=== PATIENT | female | born 1985 | race African-American/Black ===

== ENCOUNTER 2021-08-10 11:20 | Emergency (ER) | payer OTHER ==
[~2021-08-10] VITALS: Ht 175.3 cm; Wt 84.8 kg
[~2021-08-10 11:20] MED LIST: ACTICIN 5% CREA60 GM TOP; AYGESTIN 5 MG TA5 M1 PO; AZITHROMYCIN 2250 MG PO; BACTRIM DS TAB1 EACH PO; BUTALB-APAP-CA1 EACH PO; COLACE 100 MG100 MG PO; DERMOPLAST SPRA56 ML; ESKALITH CR450 MG PO; FLEXERIL PO; FLONASE 0.05%50 MCG NASAL; IBUPROFEN 600600 M1 PO; IBUPROFEN 800800 M1 PO; IRON325 PO; KEFLEX500 MG PO; LANOLIN56 GM; LISINOPRIL-HCT1 EAC2 PO; LISINOPRIL-HCT1 EACH PO; LISINOPRIL5 MG PO; LOPRESSOR PO; LORTABELXR PO; NOHOMEMEDICATIONS; NORCO 5-325 TA1 EACH PO; PHENERGAN 25 MG25 M1 PO; PRENATAL; TIROSINT50 MCG PO; TRAMADOL 50 MG50 MG PO; TRINATE TABLET1 TAB PO; TUCKS MEDICATE1 EAC1; ULTRAM 50MG TAB50 MG PO; ZOFRAN4 MG PO
[2021-08-10] MEDS ORDERED: LITHIUM CARBON300 M3 PO (11:37)
[2021-08-10] MEDS ORDERED: NORVASC10 MG PO (11:38)
[2021-08-10 12:57] LABS: URINE BILIRUBIN NEGATIVE (Negative); URINE BLOOD 3+ (Negative); URINE CLARITY CLOUDY; URINE COLOR ORANGE; URINE GLUCOSE-RANDOM* NEGATIVE (Negative); URINE KETONES NEGATIVE (Negative); URINE LEUKOCYTES-REFLEX NEGATIVE (Negative); URINE NITRITE-REFLEX NEGATIVE (Negative); URINE PROTEIN (DIPSTICK) 2+ (Negative); URINE SPECIFIC GRAVITY 1.025 (1.005-1.035); URINE UROBILINOGEN 0.2 E.U./dl (0.2-1.0)
[2021-08-10 13:13] LABS: SQUAMOUS 4-10 Moderate /LPF (0-3)
[2021-08-10 13:14] LABS: BACTERIA-REFLEX 1-9 Few /HPF (None Seen); CASTS None Seen /LPF (None Seen); CRYSTALS None Seen /LPF (None Seen); URINE RBC >20 Many /HPF (NONE SEEN); URINE WBC-REFLEX None Seen /HPF (0-5)
[2021-08-10 14:32] LABS: ABSOLUTE NEUTROPHILS 1.3 thou/uL (1.4-8.2); BASOPHILS 1.5 % (0.0-2.0); EOSINOPHILS 2.6 % (0.0-3.0); HEMOGLOBIN 9.1 gm/dL (12.0-15.0); LYMPHOCYTES 49.6 % (24.0-44.0); MCH 29.6 pg (26.0-34.0); MCHC 32.4 g/dL (28.0-37.0); MCV 91.2 fL (80.0-100.0); MONOCYTES 5.4 % (1.0-8.0); PLATELET COUNT 229 thou/uL (150-400); POLYS 40.9 % (36.0-66.0); RBC 3.07 mil/uL (4.20-5.00); RDW 13.2 % (10.5-14.5); WBC 3.1 thou/uL (4.0-11.0)
[2021-08-10 14:37] LABS: CALCIUM 8.4 mg/dL (8.5-10.1); CREATININE 0.9 mg/dL (0.6-1.0); POTASSIUM 3.6 mmol/L (3.5-5.1)
[2021-08-10 14:43] LABS: ALBUMIN 3.7 g/dL (3.4-5.0); TOTAL BILIRUBIN 0.2 mg/dL (0.2-1.0); TOTAL PROTEIN 7.4 g/dL (6.4-8.2)
[2021-08-10 16:42] VITALS: BP 148/98
== END 2021-08-10 16:42 | disposition home or self-care (01) ==
LOC: ER 11:20
PROVIDERS: Physician Assistant
DX: N93.9 Abnormal uterine and vaginal bleeding, unspecified (principal); D64.9 Anemia, unspecified; F31.9 Bipolar disorder, unspecified; Z79.891 Long term (current) use of opiate analgesic; Z79.899 Other long term (current) drug therapy

== ENCOUNTER 2021-08-13 18:33 | Emergency (ER) | payer OTHER ==
[~2021-08-13] VITALS: Ht 175.3 cm; Wt 81.7 kg
[~2021-08-13 18:33] MED LIST changes: +LITHIUM CARBON300 M3 PO; +NORVASC10 MG PO
[2021-08-13 21:58] LABS: HEMATOCRIT 23.4 % (37.0-47.0); HEMOGLOBIN 7.6 gm/dL (12.0-15.0); MCH 29.6 pg (26.0-34.0); MCHC 32.4 g/dL (28.0-37.0); MCV 91.3 fL (80.0-100.0); RBC 2.56 mil/uL (4.20-5.00); RDW 12.9 % (10.5-14.5); WBC 2.9 thou/uL (4.0-11.0)
[2021-08-13 22:14] LABS: CALCIUM 8.4 mg/dL (8.5-10.1); CREATININE 1.3 mg/dL (0.6-1.0); POTASSIUM 3.3 mmol/L (3.5-5.1)
[2021-08-14 02:05] VITALS: BP 101/52; BP 108/45; BP 125/66
[2021-08-14 05:24] LABS: HEMATOCRIT 25.1 % (37.0-47.0); HEMOGLOBIN 8.3 gm/dL (12.0-15.0); MCH 30.1 pg (26.0-34.0); MCHC 33.1 g/dL (28.0-37.0); RBC 2.75 mil/uL (4.20-5.00); RDW 12.9 % (10.5-14.5); WBC 2.6 thou/uL (4.0-11.0)
[2021-08-14] MEDS ORDERED: CRYSELLE1 EACH PO (05:45)
[2021-08-14 06:12] VITALS: BP 129/79
--- NOTE | 2021-08-14 07:30 | EKG ---
[place] [address] [employer] [facility] [email or web address] [address] ELECTROCARDIOGRAM REPORT Name: TRAVIS HARRISRoom #: DEP WILLIS [place]#: [id number] Admission: 08/13/21 Attend Phys: Discharge: 08/14/21 Date of : 81 Report #: [id number] [facility] ED Test Date: 2021-08-13 Test Time: 18:54:25 Pat Name: TRAVIS HARRIS Department: Room: Gender: F [employer] Surveying Technician: : 1985 Requested By: Annita Nielsen Order Number: [id number] MD: Edgar Womack Measurements Intervals Hugo Rate: 102 P: 54 MO: 236 QRS: 26 QRSD: 93 T: -54 QT: 351 QTc: 458 Interpretive Statements Sinus tachycardia Prolonged MO interval Borderline T abnormalities, diffuse leads Compared to ECG 09/15/2014 19:50:38 T-wave abnormality now present Sinus rhythm no longer present Sinus arrhythmia no longer present Electronically Signed On 08-14-2021 7:30:46 [employer] by Edgar Womack [email or web address] <ELECTRONICALLY SIGNED> By: Edgar Womack MD, [facility] 08/14/21 0730 53 53 Edgar Womack MD, [facility] /EPI
== END 2021-08-14 06:22 | disposition home or self-care (01) ==
LOC: ER 18:33
PROVIDERS: Emergency Medicine
DX: U07.1 COVID-19 (principal); N93.8 Other specified abnormal uterine and vaginal bleeding; D64.9 Anemia, unspecified; E05.90 Thyrotoxicosis, unspecified without thyrotoxic crisis or storm

== ENCOUNTER 2021-08-17 11:15 | Emergency (ER) | payer OTHER ==
[~2021-08-17] VITALS: Ht 172.7 cm; Wt 82.6 kg
[~2021-08-17 11:15] MED LIST changes: +CRYSELLE1 EACH PO
[2021-08-17 11:28] VITALS: BP 115/81
[2021-08-17 11:49] LABS: URINE BILIRUBIN NEGATIVE (Negative); URINE BLOOD 3+ (Negative); URINE CLARITY CLOUDY; URINE COLOR RED; URINE GLUCOSE-RANDOM* NEGATIVE (Negative); URINE KETONES TRACE (Negative); URINE LEUKOCYTES-REFLEX NEGATIVE (Negative); URINE NITRITE-REFLEX NEGATIVE (Negative); URINE PROTEIN (DIPSTICK) 1+ (Negative); URINE SPECIFIC GRAVITY 1.025 (1.005-1.035); URINE UROBILINOGEN 0.2 E.U./dl (0.2-1.0)
[2021-08-17 11:52] LABS: BACTERIA-REFLEX 1-9 Few /HPF (None Seen); CASTS None Seen /LPF (None Seen); CRYSTALS None Seen /LPF (None Seen); SQUAMOUS 0-3 Few /LPF (0-3); URINE RBC >20 Many /HPF (NONE SEEN); URINE WBC-REFLEX 0-5 Rare /HPF (0-5)
[2021-08-17 13:17] LABS: HEMOGLOBIN 8.1 gm/dL (12.0-15.0); MCH 29.7 pg (26.0-34.0); MCHC 32.3 g/dL (28.0-37.0); MCV 91.8 fL (80.0-100.0); PLATELET COUNT 238 thou/uL (150-400); RBC 2.72 mil/uL (4.20-5.00); RDW 13.7 % (10.5-14.5); WBC 2.9 thou/uL (4.0-11.0)
[2021-08-17 15:06] LABS: ABSOLUTE NEUTROPHILS 1.5 thou/uL (1.4-8.2)
== END 2021-08-17 15:07 | disposition home or self-care (01) ==
LOC: ER 11:15
PROVIDERS: Emergency Medicine
DX: U07.1 COVID-19 (principal); N92.0 Excessive and frequent menstruation with regular cycle; D64.9 Anemia, unspecified; F31.9 Bipolar disorder, unspecified; Z79.899 Other long term (current) drug therapy

== ENCOUNTER 2021-10-01 16:14 | Emergency (ER) | payer OTHER ==
[~2021-10-01] VITALS: Ht 172.7 cm; Wt 89.4 kg
[2021-10-01 16:39] LABS: URINE BILIRUBIN NEGATIVE (Negative); URINE BLOOD 3+ (Negative); URINE CLARITY CLEAR; URINE COLOR YELLOW; URINE GLUCOSE-RANDOM* NEGATIVE (Negative); URINE KETONES NEGATIVE (Negative); URINE LEUKOCYTES-REFLEX NEGATIVE (Negative); URINE NITRITE-REFLEX NEGATIVE (Negative); URINE PROTEIN (DIPSTICK) NEGATIVE (Negative); URINE SPECIFIC GRAVITY >= 1.030 (1.005-1.035); URINE UROBILINOGEN 0.2 E.U./dl (0.2-1.0)
[2021-10-01 16:46] LABS: SQUAMOUS 4-10 Moderate /LPF (0-3)
[2021-10-01 16:47] LABS: BACTERIA-REFLEX 1-9 Few /HPF (None Seen); CASTS None Seen /LPF (None Seen); CRYSTALS None Seen /LPF (None Seen); URINE RBC 3-10 Few /HPF (NONE SEEN); URINE WBC-REFLEX 0-5 Rare /HPF (0-5)
[2021-10-01 17:10] LABS: ABSOLUTE NEUTROPHILS 2.2 thou/uL (1.4-8.2); BASOPHILS 1.7 % (0.0-2.0); EOSINOPHILS 2.6 % (0.0-3.0); HEMATOCRIT 27.7 % (37.0-47.0); HEMOGLOBIN 8.6 gm/dL (12.0-15.0); LYMPHOCYTES 37.7 % (24.0-44.0); MCH 25.9 pg (26.0-34.0); MCHC 30.9 g/dL (28.0-37.0); MCV 83.6 fL (80.0-100.0); MONOCYTES 7.8 % (1.0-8.0); POLYS 50.2 % (36.0-66.0); RBC 3.32 mil/uL (4.20-5.00); RDW 16.7 % (10.5-14.5); WBC 4.7 thou/uL (4.0-11.0)
[2021-10-01 18:03] LABS: PLATELET COUNT 261 thou/uL (150-400)
[2021-10-01 19:59] VITALS: BP 141/91
== END 2021-10-01 19:56 | disposition home or self-care (01) ==
LOC: ER 16:14
PROVIDERS: Emergency Medicine
DX: O20.0 Threatened abortion (principal); E03.9 Hypothyroidism, unspecified; Z79.2 Long term (current) use of antibiotics; Z79.899 Other long term (current) drug therapy